=== PATIENT | female | born 1990 ===

== ENCOUNTER 2021-12-03 16:12 | Inpatient (IN) | payer SELFPAY ==
[2021-12-03] MEDS ORDERED: LACTATED RINGERS 1,000 ML ONE (18:20)
--- NOTE | 2021-12-03 18:59 | Ultrasound Report ---
ULTRASOUND OBSTETRIC INDICATION / CLINICAL INFORMATION: Dates. Clinical Gestational Age (GA): 41.7 weeks.days TECHNIQUE: Transabdominal. COMPARISON: None available. FINDINGS: There is a single intrauterine . Biparietal Diameter = 9.2 cm = 37.1 weeks.days Head Circumference = 32.9 cm = 37.2 weeks.days Abdominal Circumference = 36.2 cm = 40.1 weeks.days Femur Length = 7.8 cm = 39.6 weeks.days Average Ultrasound Age (AUA) = 38.4 weeks.days Heart Rate: 160 beats per minute. Estimated Weight in grams (if calculated): 3746 Position: cephalic. Placenta: anterior and free of the os. Amniotic Fluid Volume: Low Amniotic Fluid Index (RASHEED) in cm (if calculated): 2.6. Maternal Adnexa: No significant abnormality. IMPRESSION: 1. Single, living intrauterine with estimated sonographic age of 38.4 weeks.days 2. Amniotic fluid volume is low with amniotic fluid index measuring 2.6 cm Signer Name: Dano Pisano MD Signed: 12/03/2021 6:54 PM Workstation Name: [email or web address]
[2021-12-03] MEDS ORDERED: BUTORPHANOL 2 MG/1 ML INJ IV PRN (20:28)
[2021-12-03] MEDS ORDERED: TERBUTALINE 1 MG/1 ML INJ SUB-Q PRN (20:28)
[2021-12-03] MEDS ORDERED: METHYLERGONOVINE MALEATE 0.2 MG/ML VIAL IM PRN (20:28)
[2021-12-03] MEDS ORDERED: fentaNYL 100 MCG/2 ML INJ IV PRN (20:28)
[2021-12-03] MEDS ORDERED: ACETAMINOPHEN 325 MG TAB PO PRN (20:28)
[2021-12-03] MEDS ORDERED: CARBOPROST TROMETHAMINE 250 MCG/1 ML INJ IM PRN (20:28)
[2021-12-03] MEDS ORDERED: ePHEDrine SULFATE 50 MG/1 ML INJ IV PRN (20:28)
[2021-12-03] MEDS ORDERED: LACTATED RINGERS 1,000 ML IV SCH (20:30)
--- NOTE | 2021-12-03 20:37 | History and Physical Report ---
History of Present Illness Date of examination: 12/03/21 Date of admission: 12/03/2021 Chief complaint: Pelvic pressure History of present illness: 31 y/o at 41-1/7 weeks presents to OB Triage reporting pelvic pressure. She states that she has irregular contractions. She denies vaginal bleeding. There is good movement. There is no leakage of fluid. In OB Triage, her cervix was 2.5 cm dilated. OB Ultrasound limited reveled an RASHEED of 2.6 cm. As such, this fulfilled the contemporary criteria for oligohydramnios. She is admitted to Labor and Delivery for induction of labor secondary to oligohydramnios and post-due date. Past History Past Medical History: no pertinent history Past Surgical History: no surgical history Family/Genetic History: none Social history: no significant social history - Obstetrical History Expected Date of Delivery: 11/25/21 Actual Gestation: 41 Week(s) 1 Day(s) : 5 Para: 4 Hx # Term Pregnancies: 4 Number of Pregnancies: 0 Spontaneous Abortions: 0 Induced : 0 Number of Living Children: 4 Medications and Allergies Allergies Allergy/AdvReac Type Severity Reaction Status Date / Time No Known Allergies Allergy Unverified 12/03/21 16:49 Review of Systems All systems: negative - Vital Signs Vital signs: Vital Signs Pulse Pulse Ox 95 H 96 12/03/21 16:58 12/03/21 16:58 Temp Pulse Resp BP Pulse Ox 97.8 F 69 18 99 12/03/21 17:02 12/03/21 20:30 12/03/21 17:02 12/03/21 20:30 - Physical Exam Breasts: Positive: normal Cardiovascular: Regular rate Lungs: Positive: Normal air movement Abdomen: Positive: normal appearance Genitourinary (Female): Positive: normal external genitalia, normal perenium Vulva: both: normal Vagina: Positive: normal moisture Uterus: Positive: enlarged Adnexa: both: normal Anus/Rectum: Positive: normal perianal skin Extremities: Positive: normal Deep Tendon Reflex Grade: Normal +2 - Obstetrical FHR: category 1 Uterine Contraction Monitor Mode: External Cervical Dilatation: 2.5 (Moderate. Mid-position.) Cervical Effacement Percentage: 50 (Tabares Score is 6) station: -2 Uterine Contraction Pattern: Irregular Uterine Tone Measurement Phase: Contraction Results All other labs normal. Ultrasound: report reviewed (OB Ultrasound Limited= SLIUP. Vertex. Anterior placenta. EFW= 3746 g (46th %-ile). RASHEED= 2.6 cm.), image reviewed Assessment and Plan - Patient Problems (1) 41 weeks gestation of Current Visit: Yes Status: Acute Plan to address problem: care was at Clinical . She missed several visits. GBS status is unknown. She has no current risk factors for GBS, so intrapartum GBS prophylaxis is not ordered. (2) Post term at 41 weeks gestation Current Visit: Yes Status: Acute Plan to address problem: Admit to Labor and Delivery for induction of labor secondary to post-due date. (3) Oligohydramnios in corral in third trimester Current Visit: Yes Status: Acute Plan to address problem: Admit to Labor and Delivery for induction of labor secondary to oligohydramnios. (4) Encounter for induction of labor Current Visit: Yes Status: Acute Plan to address problem: Ripen cervix with oral Cytotec. Add Cook's catheter if needed for additional cervical ripening.
[2021-12-03] MEDS ORDERED: OXYTOCIN DRIP 30 UNITS/500 ML BAG IV SCH (21:00)
[2021-12-03] MEDS ORDERED: miSOPROStol 25 MCG TAB PO SCH (21:00)
[2021-12-03 21:33] LABS: Hematocrit 35.4 % (30.3-42.9); Hemoglobin 12.2 gm/dl (10.1-14.3); Mean Corpuscular HGB Conc 34 % (30-34); Mean Corpuscular Volume 97 fl (79-97); Platelet Count 116 K/mm3 (140-440); Red Blood Count 3.67 M/mm3 (3.65-5.03); Red Cell Distribution Width 14.2 % (13.2-15.2)
[2021-12-04] MEDS ORDERED: ePHEDrine SULFATE 50 MG/1 ML INJ IV PRN (00:35)
[2021-12-04] MEDS ORDERED: fentaNYL-BUPIV 2 MCG/ML-0.125% 200 MCG/100 ML BAG EPIDURAL SCH (00:35)
[2021-12-04] MEDS ORDERED: NALOXONE 0.4 MG/1 ML INJ IV PRN (00:35)
--- NOTE | 2021-12-04 00:37 | Anesthesia Day of Surgery ---
Anesthesia Day of Surgery - Day of Surgery Patient Examined: Yes Patient H&P Reviewed: Yes Patient is NPO: Yes Beta Blockers: No Cardiac Clearance: No Pulmonary Clearance: No Charly's Test: N/A
--- NOTE | 2021-12-04 00:37 | Anesthesia Consultation ---
Anesthesia Consult and Med Hx Date of service: 12/04/21 - Airway Anesthetic Teeth Evaluation: Good ROM Head & Neck: Adequate Mental/Hyoid Distance: Adequate Mallampati Class: Class II Intubation Access Assessment: Probably Good - Pulmonary Exam CTA: Yes - Cardiac Exam Cardiac Exam: RRR - Pre-Operative Health Status ASA Pre-Surgery Classification: ASA2 Proposed Anesthetic Plan: Epidural - Pulmonary Hx Smoking: No Hx Asthma: No Hx Respiratory Symptoms: No SOB: No COPD: No Home Oxygen Therapy: No Hx Pneumonia: No Hx Sleep Apnea: No - Cardiovascular System Hx Hypertension: No Hx Coronary Artery Disease: No Hx Heart Attack/AMI: No Hx Angina: No Hx Percutaneous Transluminal Coronary Angioplasty (PTCA): No Hx Cardia Arrhythmia: No Hx Pacemaker: No Hx Internal Defibrillator: No Hx Valvular Heart Disease: No Hx Heart Murmur: No Hx Peripheral Vascular Disease: No - Central Nervous System Hx Neuromuscular Disorder: No Hx Seizures: No CVA: No Hx Back Pain: No Hx Psychiatric Problems: No - Gastrointestinal Hx Ulcer: No Hx Gastroesophageal Reflux Disease: No - Endocrine Hx Renal Disease: No Hx End Stage Renal Disease: No Hx Cirrhosis: No Hx Liver Disease: No Hx Insulin Dependent Diabetes: No Hx Non-Insulin Dependent Diabetes: No Hx Thyroid Disease: No Hx Hypothyroidism: No Hx Hyperthyroidism: No - Hematic Hx Anemia: No Hx Sickle Cell Disease: No - Other Systems Hx Alcohol Use: Yes Hx Substance Use: No Hx Cancer: No Hx Obesity: No
--- NOTE | 2021-12-04 00:40 | Progress Note ---
Labor Epidural - Labor Epidural Start Time: :10 Stop Time: :20 Performed by:: GRECIA GREENE Procedure: Epidural Requested for Labor Pain. H&P and PT Chart reviewed and consent obtained. Time out performed and the procedure was explained, all questions answered. Patient was placed in a sitting position with monitors applied. The PTs back was prepped and draped in usual sterile fashion. The Skin was localized with 3 mL of 1% lidocaine at L3-L4. A 17-gauge Touhy epidural needle was advanced to LULI with saline at 7 cm and no blood/CSF was noted via epidural needle. Epidural catheter was advanced to 12 cm. There was negative aspiration for blood and CSF in the catheter and negative response to a test dose of 3 ml 1.5% lidocaine w/ Epi and a sterile dressing was applied Patient tolerated the procedure well and there were no immediate complications noted.
[2021-12-04] MEDS ORDERED: MAGNESIUM HYDROXIDE (MOM) ORAL LIQD UDC PO PRN (01:46)
[2021-12-04] MEDS ORDERED: WITCH HAZEL/ GLYCERIN PAD TP PRN (01:46)
[2021-12-04] MEDS ORDERED: HYDROcodone/ACETAMINOPHEN 5-325 MG TAB PO PRN (01:46)
[2021-12-04] MEDS ORDERED: BENZOCAINE/MENTHOL 20/0.5% TOP SPRAY 56 GM TP PRN (01:46)
[2021-12-04] MEDS ORDERED: ACETAMINOPHEN 325 MG TAB PO PRN (01:46)
[2021-12-04] MEDS ORDERED: LANOLIN/ZINC/DIMETHICONE (LANSINOH) 7 GM TP PRN (01:46)
--- NOTE | 2021-12-04 01:50 | Procedure Note ---
OB Delivery Note - Delivery Date of Delivery: 12/04/21 Surgeon: ASHLEY MENESES Estimated blood loss: 300cc - Vaginal Delivery presentation: vertex Delivery position: OA Intrapartum events: other(please specify) (Oligohydramnios, Post-due date) Delivery induction: oxytocin Delivery monitor: external FHT, external uterine Route of delivery: Delivery placenta: spontaneous Episiotomy: none Delivery laceration: none - A at 1 minute: 8 at 5 minutes: 9 Infant Gender: Male (3540 g)
[2021-12-04] MEDS: IBUPROFEN 800 MG TAB PO SCH ×3 (04:56→15:55)
[2021-12-04] MEDS: DOCUSATE SODIUM 100 MG CAP PO SCH (16:00)
[2021-12-04 18:01] LABS: Hepatitis C Virus Antibody Non-Reactive (NonReactive)
[2021-12-05] MEDS: IBUPROFEN 800 MG TAB PO SCH ×2 (00:28→07:00)
[2021-12-05] MEDS: DOCUSATE SODIUM 100 MG CAP PO SCH ×2 (00:36→10:27)
[2021-12-05 07:22] LABS: Hematocrit 31.8 % (30.3-42.9); Hemoglobin 10.9 gm/dl (10.1-14.3); Mean Corpuscular HGB Conc 34 % (30-34); Mean Corpuscular Volume 96 fl (79-97); Platelet Count 110 K/mm3 (140-440); Red Blood Count 3.32 M/mm3 (3.65-5.03); Red Cell Distribution Width 14.7 % (13.2-15.2)
--- NOTE | 2021-12-05 09:12 | Post Anesthesia Evaluation ---
- Post Anesthesia Evaluation Patient Participated: Yes Airway Patent: Yes Stable Respiratory Function: Yes Nausea/Vomiting: No Temp > 96.8F: Yes Pain Manageable: Yes Adequeate Hydration: Yes Anesthesia Complications: No Block Receding Appropriately: Yes Patient on Ventilator: No
--- NOTE | 2021-12-05 10:11 | Progress Note ---
Assessment and Plan A: PPD # 1 - stable P: Discharge home if baby is discharged Discharge instructions given Subjective - Subjective Date of service: 12/05/21 Principal diagnosis: - PPD # 1 Patient reports: appetite normal [place]: doing well Objective - Vital Signs Latest vital signs: Vital Signs Temp Pulse Resp BP Pulse Ox Pulse Ox 12/05/21 08:00 98 12/05/21 07:54 98.0 F 60 20 102/69 98 12/05/21 00:11 98.2 F 69 20 105/77 97 12/04/21 17:03 98.5 F 71 18 118/54 97 12/04/21 12:10 97.8 F 73 18 101/36 97 Intake and Output 12/04/21 12/05/21 12/05/21 22:59 06:59 14:59 Intake Total 120 360 Output Total 1800 Balance -1680 360 Intake: Oral 120 360 Output: Urine 1800 Void 1800 Other: Total, Intake Amount 120 360 Total, Output Amount 1800 # Voids Void 1 1 - Exam Breasts: Present: deferred Cardiovascular: Present: Regular rate Lungs: Present: Clear to auscultation Abdomen: Present: soft Vulva: both: normal Uterus: Present: fundal height below umbilicus Deep Tendon Reflex Grade: Normal +2 - Labs Labs: Abnormal lab results 12/05/21 Range/Units 06:54 RBC 3.32 L (3.65-5.03) M/mm3 MCH 33 H (28-32) pg Plt Count 110 L (140-440) K/mm3
--- NOTE | 2021-12-05 10:13 | Discharge Summary ---
Providers - Providers Date of Admission: 12/03/21 20:28 Date of discharge: 12/05/21 Attending physician: IRVING VELIZ 12/04/21 10:54 Consult to Case Management [CONS] Routine Services Needed at Discharge: Top Stop Attacher Notified:: yes Phone number called:: [phone] Was contact made?: Yes Time called:: 10:56 Additional Physician Instructions: Limited care. Primary care physician: IRVING VELIZ Hospitalization Reason for admission: induction of labor Delivery: Episiotomy: none Laceration: none Discharge diagnosis: IUP at term delivered [place] baby: male Condition at discharge: Good Disposition: 01 HOME / SELF CARE / HOMELESS Plan - Provider Discharge Summary Activity: routine, no sex for 6 weeks, no strenuous exercise Diet: routine Instructions: routine Additional instructions: [] Smoking cessation referral if applicable(refer to patient education folder for contact #) [] Refer to [facility]'s [facility] Booklet Call your doctor immediately for: * Fever > 100.5 * Heavy vaginal bleeding ( >1 pad per hour) * Severe persistent headache * Shortness of breath * Reddened, hot, painful area to leg or breast * Drainage or odor from incision. * Keep incision clean and dry at all times and follow doctor's instructions regarding bathing/showering - Follow up plan Follow up: IRVING VELIZ MD [Primary Care Provider] - 6 Weeks Forms: [facility] Discharge Summary
[2021-12-05 11:20] VITALS: BP 112/69
== END 2021-12-05 12:40 | disposition home or self-care (01) | DRG 806 ==
LOC: TRG 16:12 → APU 16:15 → LD 20:25 → TRG 20:28 → LD 20:28 → OB 12-04 04:18
PROVIDERS: ADMIT Obstetrics & Gynecology; ATTEND Obstetrics & Gynecology
PROC: 10E0XZZ Delivery of Products of Conception, External Approach (ICD-10-PCS; principal; 2021-12-04)
PROC: 3E0R3BZ Introduction of Anesthetic Agent into Spinal Canal, Percutaneous Approach (ICD-10-PCS; 2021-12-04)
PROC: 00HU33Z Insertion of Infusion Device into Spinal Canal, Percutaneous Approach (ICD-10-PCS; 2021-12-04)
PROC: 3E033VJ Introduction of Other Hormone into Peripheral Vein, Percutaneous Approach (ICD-10-PCS; 2021-12-04)
DX: O48.0 Post-term pregnancy (principal); O41.03X0 Oligohydramnios, third trimester, not applicable or unspecified; Z37.0 Single live birth; Z3A.41 41 weeks gestation of pregnancy; Z20.822 Contact with and (suspected) exposure to COVID-19
CPT/HCPCS: 36415; 76816; 83036; 85027; 86592; 86762; 86803; 86850; 86900; 86901; G0378; J3490; J3010; J7120; U0003